=== PATIENT | female | born 1975 ===

== ENCOUNTER 2017-08-10 05:46 | Day surgery (SDC) | payer MEDICAID ==
[2017-08-05 10:06] VITALS: BMI 26.6
[2017-08-10 06:31] VITALS: PULSE 66
[2017-08-10 06:38] VITALS: BP 114/79; RESP 20; TEMP 97.6; O2SAT 100
[2017-08-10] MEDS ORDERED: Propofol 10 mg/ml Inj (20 ML) ONE (07:20)
[2017-08-10] MEDS ORDERED: Midazolam 2 MG/2 ML VIAL ONE (07:20)
[2017-08-10] MEDS ORDERED: Lidocaine/Epinephrine 1% 1:100000 10 ML IJ ONE (07:32)
[2017-08-10] MEDS ORDERED: Bupivacaine HCl 0.25% PF (30 ml) Inj ONE (07:32)
== END 2017-08-10 09:14 | disposition home or self-care (01) ==
LOC: C.SDS 05:46
PROVIDERS: ATTEND Surgery Surgical Critical Care
DX: N60.02 Solitary cyst of left breast (principal); N64.89 Other specified disorders of breast; Z53.9 Procedure and treatment not carried out, unspecified reason
CPT/HCPCS: 19000; J2001

== ENCOUNTER 2017-08-19 07:08 | Day surgery (SDC) | payer MEDICAID ==
[2017-08-05 10:04] VITALS: BMI 26.6
[2017-08-19] MEDS: ceFAZolin 1 gm in NS 2 GM/200 ML BAG IVPB ONE ×2 (12:20→14:17)
[2017-08-19] MEDS ORDERED: Midazolam 2 MG/2 ML VIAL ONE (14:05)
[2017-08-19] MEDS ORDERED: Propofol 10 mg/ml Inj (20 ML) ONE (14:05)
[2017-08-19] MEDS ORDERED: Succinylcholine Chloride 20 mg/ml Syr (5 ml) IV ONE (14:06)
[2017-08-19] MEDS ORDERED: Lidocaine/Epinephrine 1% 1:100000 10 ML IJ ONE (14:11)
[2017-08-19] MEDS ORDERED: Bupivacaine HCl 0.25% PF (30 ml) Inj ONE (14:11)
[2017-08-19] MEDS ORDERED: HYDROmorphone 0.5 mg/0.5 ml ISec IVP PRN (15:18)
--- NOTE | 2017-08-19 15:24 | CP.SDSHP ---
Same Day Surgery H & P - History Proposed Procedure: Paper H&P in chart - Allergies Allergies: Allergies shrimp Allergy (Severe, Verified 08/05/17 10:03) ANAPHYLAXIS shellfish derived Allergy (Verified 08/19/17 07:39) ANAPHYLAXIS Short Stay Discharge - Short Stay Discharge Admitting Diagnosis/Reason for Visit: LEFT BREAST LESION Disposition: HOME/ ROUTINE Follow-up: 7-10 days call office tomorrow to schedule apointment Instructions: Breast Surgical Biopsy Additional Instructions (Diet, Activity): You have dissolvable stitches covered by surgical " strips" do not remove strips they will fall off in the shower. You may shower on Thursday. Strips will eventually fall off by themselves. If you develop fevers chills or any new or concerning symptoms go to the ED. Pain medication prescriptions left in chart take as directed.
[2017-08-19] MEDS ORDERED: Oxycodone/Acetaminophen 5/325 mg Tab PO PRN (15:25)
[2017-08-19 17:02] VITALS: BP 123/70; PULSE 80; RESP 18; TEMP 98; O2SAT 100
--- NOTE | 2017-08-20 03:52 | OP ---
PROCEDURE DATE: 08/19/2017 PREOPERATIVE DIAGNOSIS: Left breast mass. POSTOPERATIVE DIAGNOSIS: Left breast mass. PROCEDURE DONE: Preoperative needle localization and left breast mass excision. SURGEON: Dionicio Graham MD CATALOGUE ILLUSTRATOR: Ramon Phipps, PGY-2 resident. ANESTHESIA: General endotracheal tube anesthesia. ESTIMATED BLOOD LOSS: Around 10 mL. DRAINS: None. PATHOLOGY: Left breast mass was sent to the pathology. COMPLICATIONS: None. INTRAOPERATIVE FINDINGS: The patient had left breast mass localized by the preop needle placement. DESCRIPTION OF PROCEDURE: On intraoperative steps, this is a 42-year-old female who was diagnosed with left breast mass and the patient was consented for the preop needle localization and excision of the mass. The patient was brought to the OR after preop needle localization, placed on the operating table. After induction of anesthesia, the left breast was prepped and draped in the usual sterile fashion. The curvilinear incision was made on the needle localized area and the skin flap was raised. The wire was brought into the wound and the dissection was continued and an irregular-shaped benign looking mass was identified and it was excised. Radiological confirmation was done for the complete removal of the mass and after that the hemostasis was achieved. The wound was closed in two layers, subcu with 2-0 Vicryl, skin with 4-0 Monocryl and dry sterile dressing was applied. The patient tolerated the procedure well. Count of the instrument and gauze were correct. There was no apparent complications. The patient was reversed from anesthesia and sent to the postanesthesia care unit in stable condition. Dionicio Graham MD
--- NOTE | 2017-08-20 09:02 | US ---
PROCEDURE: Left breast wire localization HISTORY: Left breast 9 o'clock fibroepithelial lesion. CONSENT: The time-out, which included patient's full name, date of , description of the expected procedure and procedure site, was performed immediately before the procedure to confirm patient's identity. Informed consent was obtained. PROCEDURE: Wire localization using sonographic guidance was performed for the Left breast 9 o'clock fibroepithelial lesion. The skin was prepped in the usual manner. 4 cc of lidocaine 1% was injected into the subcutaneous tissue at the access site to provide local anesthesia. A medial approach was used with a 7.5 cm needle and wire. A wire was inserted into the targeted area under sonographic guidance. Post placement mammographic imaging demonstrates the thick segment of the wire appropriately located in the targeted area. IMPRESSION: Left breast wire localization was successful with no apparent post-procedure complications. X-ray of the surgical specimen demonstrates distal aspect of the wire, a biopsy marker clip, and mass. PATHOLOGY: Pending.
== END 2017-08-19 18:49 | disposition home or self-care (01) ==
LOC: C.SDS 07:08
PROVIDERS: ATTEND Surgery Surgical Critical Care
DX: N60.01 Solitary cyst of right breast (principal)
CPT/HCPCS: 19120; 19285; 82948; 88307; J0690; J1170; J2250; J2704; J3010